=== PATIENT | male | born 1965 | race African-American/Black ===

== ENCOUNTER 2016-10-19 03:47 | Inpatient (IN) | payer SELFPAY ==
[~2016-10-19] VITALS: Ht 177.8 cm; Wt 90.7 kg
[2016-10-19] MEDS ORDERED: HALOPERIDOL LACTATE INJ 5 MG/ML VIAL IM ONE ×2 (03:52→04:00)
[2016-10-19] MEDS ORDERED: diphenhydrAMINE HCL 50 MG/ML VIAL IV ONE (03:52)
--- NOTE | 2016-10-19 03:59 | NUR ---
PATIENT BROUGHT IN BY EMS, PT RAN OFF EMS GURNEY, LAYED IN [facility] ED PARKING LOT, YELLING NON SENSICAL WORDS. PATIENT DENIES ANY CP/N/V/ OR ANYN OTHER MEDICAL COMPLAINTS. PT ALERT X 1, KNOWS NAME NOT SITUATION, TIME OR EVENTS. PT IS NOT FOLLOWING COMANDS AT THIS TIME. PLACED PATIENT IN 4 POINT RESTRAINT PER ORDER MD SARMIENTO
[2016-10-19] MEDS ORDERED: diphenhydrAMINE HCL 50 MG/ML VIAL IM ONE (04:00)
[2016-10-19] MEDS ORDERED: LORAZEPAM INJ 2 MG/ML VIAL IM ONE (04:00)
--- NOTE | 2016-10-19 04:00 | NUR ---
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 PT IS YELLING NON SENSICAL WORDS. PT ASSISTED TO ER BED, SKIN WARM AND DRY, RR EVEN AND UNLABORED. AWAITING ORDERS FROM PROVIDER. WILL CONITNUE TO MONITOR
--- NOTE | 2016-10-19 04:04 | NUR ---
18G RIGHT FA IV STARTED, BLOOD SAMPLE OBTAINED AND SENT TO LAB
[2016-10-19 04:09] LABS: BASOPHILS % (AUTO) 0.3 % (0.0-2.0); EOSINOPHILS # (AUTO) 0.3 /CMM (0.0-0.7); EOSINOPHILS % (AUTO) 2.5 % (0.0-6.0); HEMATOCRIT 43 % (39-51); HEMOGLOBIN 14.1 g/dL (13.5-17.5); LYMPHOCYTES # (AUTO) 2.8 /CMM (0.8-4.8); LYMPHOCYTES % (AUTO) 23.5 % (20.0-44.0); MEAN CORPUSCULAR HEMOGLOBIN 28 PG (26.0-33.0); MEAN CORPUSCULAR HGB CONC 33 g/dl (31.0-36.0); MEAN CORPUSCULAR VOLUME 86 fL (80-96); MONOCYTES # (AUTO) 1.1 /CMM (0.1-1.30); MONOCYTES % (AUTO) 9.2 % (2.0-12.0); NEUTROPHILS # (AUTO) 7.7 /CMM (1.8-8.9); NEUTROPHILS % (AUTO) 64.5 % (43.0-81.0); PLATELET COUNT (AUTO) 262 /CMM (150-450); RDW COEFFICIENT OF VARIATION 13.1 (11.5-15.0); RED BLOOD CELL COUNT(AUTO) 4.97 MIL/uL (4.5-6.0); WHITE BLOOD COUNT (AUTO) 11.9 K/uL (4.3-11.0)
[2016-10-19] MEDS ORDERED: LIDOCAINE 2% JEL UROJET 10 ML MM ONE (04:17)
--- NOTE | 2016-10-19 04:26 | NUR ---
TRIED 16F STRAIGHT CATH FOR URINE SAMPLE. HIT RESISTANCE HALF WAY. MD SARMIENTO NOTIFIED. ATTEMPTED 16F COUDUE CATH, STILL UNABLE HITTING RESISTANCE HALF WAY. NOTIFIED. NO URINE SAMPLE OBTAINED. MD SARMIENTO NOTIFIED
[2016-10-19 04:33] LABS: ALANINE AMINOTRANSFERASE 32 U/L (12-78); ALCOHOL, BLOOD < 3 mg/dL (0-0); ALKALINE PHOSPHATASE 80 U/L (46-116); ASPARTATE AMINOTRANSFERASE 26 U/L (15-37); BILIRUBIN,DIRECT 0.2 mg/dL (0.0-0.2); BILIRUBIN,TOTAL 1.2 mg/dL (0.2-1.0); CALCIUM, SERUM 8.6 mg/dL (8.5-10.1); CARBON DIOXIDE 24 mmol/L (21-32); CHLORIDE 102 mmol/L (98-107); CREATININE 1.8 mg/dL (0.6-1.3); GLUCOSE 152 mg/dL (74-106); SODIUM SERUM 143 mmol/L (136-145); TOTAL PROTEIN, SERUM 7.8 g/dL (6.4-8.2); UREA NITROGEN, BLOOD 16 mg/dL (7-18)
[2016-10-19 04:39] LABS: ACETAMINOPHEN 0 ug/ml (10-30); POTASSIUM 2.7 mmol/L (3.5-5.1); SALICYLATE 0.8 mg/dL (2.8-20.0)
[2016-10-19] MEDS ORDERED: POTASSIUM CL. PREMIX PERIPHER. 100 ML ONE (04:45)
[2016-10-19] MEDS ORDERED: LORAZEPAM INJ 2 MG/ML VIAL ONE (04:58)
[2016-10-19] MEDS ORDERED: LORAZEPAM INJ 2 MG/ML VIAL IV ONE (05:00)
[2016-10-19] MEDS ORDERED: IV NS 0.9% 1,000 ML BAG IV ONE (05:00)
[2016-10-19] MEDS ORDERED: POTASSIUM CHLORIDE 10 MEQ/50 ML PREMIXED IVPB FOR PERIPHERAL LINE IV ONE (05:00)
--- NOTE | 2016-10-19 05:00 | NUR ---
TRANSPORTED PT TO CT VIA [facility]
--- NOTE | 2016-10-19 05:22 | NUR ---
RETURNED PATIENT TO ER ROOM VIA GURNEY. REMOVED LOWER EXTREMITY RESTRAINTS. 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 WILL CONTINUE TO MONITOR
--- NOTE | 2016-10-19 05:43 | NUR ---
PT RESTING IN ER BED, NAD NOTED, SKIN WARM AND DRY. 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 WILL CONTINEU TO MONITOR
[2016-10-19] MEDS ORDERED: POTASSIUM CL. PREMIX PERIPHER. 50 ML ONE ×2 (07:12→08:20)
--- NOTE | 2016-10-19 07:15 | NUR ---
RECEIVED PATIENT IN STABLE CONDITION. PATIENT IS SLEEPING, RESTRAINTS REMOVED. 3RD BAG OF POTASSIUM STARTED ON RFA, 18 G. WILL CONTINUE TO MONITOR.
--- NOTE | 2016-10-19 08:24 | NUR ---
4TH BAG OF POTASSIUM INFUSING, RFA, 18 G.
--- NOTE | 2016-10-19 13:46 | NUR ---
CALLED [facility].
--- NOTE | 2016-10-19 14:01 | NUR ---
Patient to be admitted to [facility] for further monitoring.
--- NOTE | 2016-10-19 14:50 | NUR ---
REPORT GIVEN TO RNMERARY FOR ADMISSION
--- NOTE | 2016-10-19 15:30 | NUR ---
FREIGHT CLAIM INVESTIGATOR OPENING NOTES RECEIVED PT. FROM ER NURSE IN STABLE CONDITION. PT. IS SLEEPING BUT EASILY AROUSABLE. PT IS A/O X1. HE IS ABLE TO STATE HIS FULL NAME AND PARTIAL (MONTH/DAY) DATE OF . VITAL SIGNS ARE WNL. IV IS PRESENT IN RIGHT FA 18G. IV IS PATENT AND INTACT. PT IS SR ON THE MONITOR WITH OCCASIONAL SINUS ARRHYTHMIAS. WILL NOTIFY MD OF ADMISSION AND COMPLETE ADMISSION PROCESS
--- NOTE | 2016-10-19 15:30 | NUR ---
PATIENT TRANSPORTED TO [facility] FOR ADMISSION. RN, MERARY TO PROVIDE NIKUNJ.
[2016-10-19 15:40] VITALS: BP 130/82
--- NOTE | 2016-10-19 15:49 | NUR ---
WATCHER LOOKOUT TOWER NOTES WHEN GOING THROUGH THE PT'S BELONGINGS, IT WAS DISCOVERED THAT THE PT HAS A USED NEEDLE, A BAG OF WEED, 2 LIGHTERS, AND $20. PT. COULD NOT SIGN BELONGINGS FORM DUE TO MENTAL STATUS, THESE BELONGINGS WERE COUNTED AND VERIFIED BY MYSELF AND NANO. BELONGINGS HAVE BEEN LOCKED IN THE [address] [place] [address].
[2016-10-19 16:00] VITALS: BP 130/82
[2016-10-19] MEDS ORDERED: ONDANSETRON HCL/PF 4 MG/2 ML VIAL IVP PRN (16:30)
[2016-10-19] MEDS ORDERED: ZOLPIDEM TARTRATE 5 MG TABLET PO PRN (16:30)
[2016-10-19] MEDS ORDERED: Z GUARD REMEDY 2 OZ OINT TP PRN (16:30)
[2016-10-19] MEDS ORDERED: ENOXAPARIN SODIUM 40 MG/0.4 ML DISP.SYRIN SQ SCH (16:30)
[2016-10-19] MEDS ORDERED: MAG HYDROX/AL HYDROX/SIMETH 30 ML UDC PO PRN (16:30)
[2016-10-19] MEDS ORDERED: MAGNESIUM HYDROXIDE 30 ML UDC PO PRN (16:30)
[2016-10-19] MEDS ORDERED: HYDROCODONE/APAP 5/325MG 1 EACH TABLET PO PRN (16:30)
[2016-10-19] MEDS ORDERED: ACETAMINOPHEN 325 MG TABLET PO PRN (16:30)
[2016-10-19] MEDS ORDERED: LORAZEPAM INJ 2 MG/ML VIAL IV PRN (17:00)
[2016-10-19] MEDS: IV NS 0.9% 1,000 ML IV PRN (17:31)
--- NOTE | 2016-10-19 18:38 | NUR ---
VICTIM WITNESS ADMINISTRATOR CLOSING NOTES PT. REMAINS IN STABLE CONDITION SINCE ADMISSION. ALL NEEDS HAVE BEEN MET DURING SHIFT AND ORDERS CARRIED OUT ACCORDINGLY. PT'S MENTAL STATUS REMAINS ALTERED. BED IN LOW LOCKED POSITION, SIDE RAILS UP X3, CALL LIGHT WITHIN REACH, BED ALARM ON. WILL ENDORSE TO NIGHTSHIFT NURSE FOR NIKUNJ
--- NOTE | 2016-10-19 19:35 | NUR ---
RN OPENING NOTES RECEIVED REPORT FROM DOTTY LAURENT RN. FOUND Pt ASLEEP IN BED. NO S/S OF ACUTE DISTRESS OR SOB NOTED. EQUAL CHEST RISE AND FALL. Pt IS VERY SEDATED AND LETHARGIC. WHEN AWOKEN, EYELIDS LOOK HEAVY AND DROOPY. NOT ABLE TO STAY AWAKE FOR LONG. IS ABLE TO ANSWER SIMPLE QUESTIONS SUCH FULL NAME AND WHAT YEAR IT IS. Pt IS A/OX2, BUT GOES IN AND OUT OF SLEEP. UNABLE TO ANSWER ANY OTHER QUESTIONS FULLY. NO SIGNS OF PAIN AT THIS TIME. IV ACCESS ON RFA #18G, IVF NS @100ML/HR, INFUSING WELL. SAFETY MEASURES IN PLACE. BED LOW, LOCKED, HOB ELEVATED, SIDE RAILS UP, CALL LIGHT AND BEDSIDE TABLE WITHIN REACH. WILL CONTINUE TO MONITOR Pt THROUGHOUT THE NIGHT FOR SAFETY.
[2016-10-19 20:00] VITALS: BP 147/81
[2016-10-20] VITALS: BP 131/81
[2016-10-20 00:38] VITALS: BP 131/81
[2016-10-20] MEDS: IV NS 0.9% 1,000 ML IV PRN (03:39)
[2016-10-20 04:00] VITALS: BP 133/71
--- NOTE | 2016-10-20 06:52 | NUR ---
RN CLOSING NOTES NO SIGNIFICANT CHANGES IN Pt's CONDITION. NO S/S OF ACUTE DISTRESS OR SOB NOTED DURING THE NIGHT. ALL NEEDS MET AND ATTENDED TO. Pt SLEPT ALL THROUGH THE NIGHT. SAFETY MEASURES IN PLACE. TELE READING SR 60. WILL ENDORSE TO DAYSHIFT RN FOR Pt's NIKUNJ.
[2016-10-20] MEDS ORDERED: PANTOPRAZOLE 40 MG TABLET.DR PO SCH (07:30)
--- NOTE | 2016-10-20 07:30 | NUR ---
TELE/RN OPENING NOTES RECEIVED PT. IN BED SLEEPING EASILY AWAKENS. A&OX.4. PT. REPORTED BEING ALLERGIC TO MEDICATION MOTRIN. NO SOB, AND NO S/S OF ACUTE DISTRESS. IV FLUIDS RUNNING AT 100 ML/HR. BED IS IN LOW POSITION, 2 SIDE RAILS UP, AND ALL NEED MET. INSTRUCTED PT. TO USE CALL LIGHT FOR ASSISTANCE.
[2016-10-20 08:00] VITALS: BP 131/72
[2016-10-20 08:32] LABS: BASOPHILS % (AUTO) 0.6 % (0.0-2.0); EOSINOPHILS # (AUTO) 0.2 /CMM (0.0-0.7); EOSINOPHILS % (AUTO) 3.3 % (0.0-6.0); HEMATOCRIT 38 % (39-51); HEMOGLOBIN 12.9 g/dL (13.5-17.5); LYMPHOCYTES # (AUTO) 1.1 /CMM (0.8-4.8); LYMPHOCYTES % (AUTO) 17.4 % (20.0-44.0); MEAN CORPUSCULAR HEMOGLOBIN 28 PG (26.0-33.0); MEAN CORPUSCULAR HGB CONC 34 g/dl (31.0-36.0); MEAN CORPUSCULAR VOLUME 85 fL (80-96); MONOCYTES # (AUTO) 0.5 /CMM (0.1-1.30); MONOCYTES % (AUTO) 7.5 % (2.0-12.0); NEUTROPHILS # (AUTO) 4.5 /CMM (1.8-8.9); NEUTROPHILS % (AUTO) 71.2 % (43.0-81.0); PLATELET COUNT (AUTO) 201 /CMM (150-450); RDW COEFFICIENT OF VARIATION 13.1 (11.5-15.0); RED BLOOD CELL COUNT(AUTO) 4.53 MIL/uL (4.5-6.0); WHITE BLOOD COUNT (AUTO) 6.3 K/uL (4.3-11.0)
[2016-10-20 08:47] LABS: CALCIUM, SERUM 7.7 mg/dL (8.5-10.1); CREATININE 0.9 mg/dL (0.6-1.3); MAGNESIUM 2.1 mg/dL (1.8-2.4); PHOSPHORUS 3.1 mg/dL (2.5-4.9); POTASSIUM 3.5 mmol/L (3.5-5.1)
[2016-10-20 10:28] VITALS: BP 131/72
[2016-10-20 12:00] VITALS: BP 140/73
--- NOTE | 2016-10-20 13:39 | NUR ---
RN NOTES DISCHARGE INSTRUCTIONS PT. IS IN MEDICALLY STABLE CONDITION. PT. WAS EXPLAINED DISCHARGE INSTRUCTIONS, AND VERBALIZED UNDERSTANDING. PT. SIGNED DISCHARGE PAPERS. BELONGINGS LIST WAS CHECKED, SIGNED BY PT. AND NURSE.
--- NOTE | 2016-10-20 14:35 | NUR ---
RN NOTES PT. SAID THAT HE IS GOING TO HIS SISTER'S HOUSE AT [id number] [place] [address], [place] [id number]. PT. WAS OFFERED A BUS TOKEN FOR TRANSPORTATION. PT. AGREED TO TAKE A BUS TOKEN.
--- NOTE | 2016-10-20 15:30 | NUR ---
RN NOTES DISCHARGE PT. WALKED OUT OF [facility] IN MEDICALLY STABLE CONDITION WITH REMEDIATION PROJECT ENGINEER. ID BAND, AND IV WAS REMOVED WITHOUT COMPLICATIONS. PT. LEFT WITH DISCHARGE PACKET, AND BELONGINGS.
== END 2016-10-20 15:30 | disposition home or self-care (01) | DRG 91 ==
LOC: ER 03:51 → TELE 14:23 → MED 10-20 09:55
PROVIDERS: ADMIT Internal Medicine; ATTEND Internal Medicine
DX: G92 Toxic encephalopathy (principal); N17.0 Acute kidney failure with tubular necrosis; R65.10 Systemic inflammatory response syndrome (SIRS) of non-infectious origin without acute organ dysfunction; E87.6 Hypokalemia; E86.0 Dehydration; R73.9 Hyperglycemia, unspecified; F19.10 Other psychoactive substance abuse, uncomplicated
CPT/HCPCS: 36415; 70450-TC; 71010-TC; 80048-TC; 80076-TC; 83735-TC; 84100-TC; 85025-TC; 87081-TC; A4606; G0480; J1200; J1630; J1650; J2060; J3480; J3490; J7030; Z7610